=== PATIENT | female | born 1985 | race Caucasian/White ===

== ENCOUNTER 2021-03-19 12:29 | Emergency (ER) | payer BC ==
[2021-03-19 13:11] VITALS: BP 181/54; PULSE 86; TEMP 98.2; BMI 17.7
[2021-03-19] MEDS ORDERED: CASIRIVIMAB/IMDEVIMAB 10 ML in SODIUM CHLORIDE 100 ML IVPB ONE (14:00)
== END 2021-03-19 17:07 | disposition home or self-care (01) ==
LOC: JCOVINFU 12:29
DX: U07.1 COVID-19 (principal)
CPT/HCPCS: 99284-25; Q0240